=== PATIENT | male | born 1985 | race Two or more races ===

== ENCOUNTER 2016-08-06 09:35 | Emergency (ER) | payer MEDICAID, OTHER ==
[~2016-08-06] VITALS: Ht 172.7 cm; Wt 59.0 kg
[2016-08-06 10:38] VITALS: BP 127/77
[2016-08-06] MEDS ORDERED: diphenhdrAMINE HCL 50 MG/1 ML VL IM ONE (11:00)
[2016-08-06] MEDS ORDERED: methylPREDNISolone SOD SUCC 125 MG/2 ML VL IM ONE (11:00)
== END 2016-08-06 11:25 | disposition home or self-care (01) ==
LOC: ER 09:49
DX: S50.862A Insect bite (nonvenomous) of left forearm, initial encounter (principal); W57.XXXA Bitten or stung by nonvenomous insect and other nonvenomous arthropods, initial encounter; Y93.89 Activity, other specified; Y99.8 Other external cause status; Y92.89 Other specified places as the place of occurrence of the external cause
CPT/HCPCS: 96372; 99284; J1200; J2930